=== PATIENT | female | born 1980 | race Caucasian/White ===

== ENCOUNTER 2021-12-11 07:57 | Emergency (ER) | payer OTHER ==
[~2021-12-11] VITALS: Ht 165.1 cm; Wt 63.5 kg
== END 2021-12-11 09:15 | disposition home or self-care (01) ==
LOC: ER 07:57
DX: R21 Rash and other nonspecific skin eruption (principal)

== ENCOUNTER 2025-02-14 21:40 | Emergency (ER) | payer OTHER ==
[~2025-02-14] VITALS: Ht 165.1 cm; Wt 56.7 kg
[2025-02-14] MEDS ORDERED: METHYLPREDNISOLO8 MG (21:51)
[2025-02-14 23:54] LABS: BASO % 0.2 % (0.1-1.2); EOS # 0.06 (0.04-0.54); EOS % 0.7 % (0.7-7.0); HEMATOCRIT 39.3 % (34.1-44.9); HEMOGLOBIN 12.7 g/dL (11.2-15.7); LYMPH # 3.63 (1.18-3.74); LYMPH % 44.4 % (19.3-53.1); MONO # 0.86 (0.24-0.82); MONO % 10.5 % (4.7-12.5); NEUT # 3.59 (1.56-6.13); PLATELET COUNT 254 K/uL (163-369); RED BLOOD COUNT 4.53 M/uL (3.93-5.22); RED CELL DISTRIBUTION WIDTH 13.2 % (11.6-14.4)
[2025-02-15 00:10] LABS: INR 0.94; PARTIAL THROMBOPLASTIN TIME 22.5 SECONDS (22.0-34.0); PROTHROMBIN TIME 10.3 SECONDS (9.0-11.5)
[2025-02-15 00:14] LABS: ALBUMIN 3.7 gm/dL (3.4-5.0); BILIRUBIN TOTAL 0.45 mg/dL (0.3-1.2); CALCIUM 9.1 mg/dL (8.5-10.1); CREATININE SERUM 0.84 mg/dL (0.55-1.02); GFR 73.65; POTASSIUM 3.54 mEq/L (3.5-5.1); TOTAL PROTEIN 7.7 gm/dL (6.4-8.2)
[2025-02-15 00:37] LABS: URINE APPEARANCE Clear; URINE BILIRRUBIN Negative (NEGATIVE); URINE BLOOD Negative; URINE COLOR Yellow; URINE GLUCOSE Negative (NEGATIVE); URINE KETONE Negative (NEGATIVE); URINE LEUKOCYTE Trace; URINE NITRATE Negative; URINE PROTEIN Negative (NEGATIVE); URINE UROBILINOGEN 0.2 E.U./dl
[2025-02-15 00:42] LABS: URINE BACTERIA 774.7 uL (0.0-1933); URINE EPITHELIAL CELLS 19.6 uL (0.0-38.8); URINE RBC 2.2 uL (0.0-20.8); URINE WBC 37.8 uL (0.0-23.2)
[2025-02-15 01:29] LABS: COVID-19 AG NEGATIVE (NEGATIVE)
[2025-02-15 01:56] LABS: INFLUENZA A AG NEGATIVE (NEGATIVE); INFLUENZA B AG NEGATIVE (NEGATIVE)
== END 2025-02-15 02:10 | disposition home or self-care (01) ==
LOC: ER 21:40
PROVIDERS: General Practice
DX: R21 Rash and other nonspecific skin eruption (principal); L71.8 Other rosacea; B09 Unspecified viral infection characterized by skin and mucous membrane lesions; Z20.822 Contact with and (suspected) exposure to COVID-19